=== PATIENT | female | born 1990 | race Caucasian/White ===

== ENCOUNTER 2016-05-26 17:48 | Emergency (ER) | payer OTHER ==
--- NOTE | 2016-05-26 18:07 | Emergency Department Record ---
History of Present Illness - General Chief Complaint: Headache Migraine Stated Complaint: MIGRAINE Time Seen by Provider: 05/26/16 18:06 Source: Patient Mode of Arrival: Ambulatory Limitations: No limitations - History of Present Illness Initial Comments: The patient is here due to a YOUNG today. She noticed the pain when she woke up. The pain is sharp and stabbing and is behind the L eye. It is associated with nausea and mild photophobia but no vomiting. The pain gradually worsened during the day. She has a long hx of migraine YOUNG's exactly like this and has needed to come to the ER in the past. She denies any new symptoms. MD Complaint: Headache Onset/Timin -: Hour(s) Onset Description: Gradual, Awoke with symptoms Location: Left Severity: Moderate Severity scale (1-10): 8 Quality: Aching Improves With: Nothing Worsens With: None Associated Symptoms: Nausea Treatments Prior to Arrival: Migraine medication - Related Data Home Medications Medication Instructions Recorded Confirmed Last Taken Etonogestrel/Ethinyl Estradiol 1 each VG DAILY 11/06/13 05/26/16 05/26/16 [Nuvaring Vaginal Ring] Previous Rx's Medication Instructions Recorded Methylprednisolone [Medrol Dose 4 mg PO DAILY #1 tab.ds.pk 05/26/16 Pack] Allergies Allergy/AdvReac Type Severity Reaction Status Date / Time escitalopram oxalate Allergy Severe HIVES Verified 05/26/16 18:04 [From Lexapro] hydrocodone bitartrate Allergy Intermediate VOMITING Verified 05/26/16 18:04 [From [place]] Carba Mix (found in surgical Allergy Severe HIVES Uncoded 07/25/15 10:45 gloves) Thirulium(found in surgical Allergy Severe HIVES Uncoded 07/25/15 10:45 gloves) Travel Screening - Travel/Exposure Within Last 30 Days Have you traveled within the last 30 days?: No Review of Systems Constitutional: Denies: Chills, Fever Eyes: Denies: Eye discharge ENT: Denies: Congestion Respiratory: Denies: Cough, Dyspnea Past Medical History - SOCIAL HISTORY Smoking Status: Never smoker Alcohol Use: None Drug Use: None - RESPIRATORY Hx Respiratory Disorders: No - CARDIOVASCULAR Hx Cardio Disorders: No - NEURO Hx Neuro Disorders: No Hx Headaches: Yes (Migraine) - GI Hx GI Disorders: No - Hx Genitourinary Disorders: No - ENDOCRINE Hx Endocrine Disorders: No - MUSCULOSKELETAL Hx Musculoskeletal Disorders: No - PSYCH Hx Psych Problems: Yes Hx Anxiety: Yes Hx Depression: Yes Comment:: ADHD - HEMATOLOGY/ONCOLOGY Hx Hematology/Oncology Disorders: No Family Medical History Any Significant Family History?: Yes Hx Cancer: Grandparents Physical Exam - General General Appearance: Alert, Oriented x3, Cooperative, No acute distress - Head Head exam: Atraumatic, Normocephalic, Normal inspection - Eye Eye exam: Normal appearance, PERRL - ENT ENT exam: Normal exam, Mucous membranes moist, Normal external ear exam, Normal orophraynx - Neck Neck exam: Normal inspection, Full ROM. negative: Lymphadenopathy, Meningismus (The neck is very supple.), Tenderness - Respiratory Respiratory exam: Normal lung sounds bilaterally. negative: Respiratory distress - Cardiovascular Cardiovascular Exam: Regular rate, Normal rhythm, Normal heart sounds - GI/Abdominal GI/Abdominal exam: Soft, Normal bowel sounds. negative: Tenderness - Neurological Neurological exam: Alert, Normal gait, Oriented X3, Other (Neg [place]ift and [place].). negative: Abnormal gait, Altered, Motor sensory deficit - Psychiatric Psychiatric exam: Flat affect. negative: Agitated, Anxious, Depressed Course Vital Signs 05/26/16 17:59 Temperature 98.3 F Pulse Rate 91 H Respiratory 18 Rate Blood Pressure 135/87 Pulse Ox 100 - Reevaluation(s) Reevaluation #1: The patient denies any new issues. She is resting comfortably and states she still does have the YOUNG but it is much improved. She feels ready to go. 05/26/16 18:57 05/27/16 07:16 Disposition Disposition: Discharge Clinical Impression: Migraine Qualifiers: Migraine type: unspecified Status migrainosus presence: without status migrainosus Intractability: not intractable Qualified Code(s): G43.909 - Migraine, unspecified, not intractable, without status migrainosus Disposition: Home, Self-Care Condition: (1) Good Instructions: Migraine Headache (ED) Additional Instructions: Continue your regular medicines. Take the Medrol as directed. Please see your PCP if not better in 3 days. Return to the ER if worse. Prescriptions: Methylprednisolone [Medrol Dose Pack] 4 mg PO DAILY #1 tab.ds.pk Forms: Patient Portal Access Time of Disposition: 19:35
[2016-05-26] MEDS: METOCLOPRAMIDE HCL 10 MG/2 ML VIAL IVP ONE (18:39)
[2016-05-26] MEDS: DIPHENHYDRAMINE HCL IV 50 MG/ML VIAL IVP ONE (18:39)
[2016-05-26] MEDS: KETOROLAC 30 MG/ML VIAL IVP ONE ×2 (18:39→19:05)
[2016-05-26] MEDS: METHYLPREDNISOLONE SOD 40MG/VIAL IVP ONE (19:05)
[2016-05-26] MEDS: MORPHINE SULFATE 5 MG/ML PFS IVP ONE (19:44)
== END 2016-05-26 20:09 | disposition home or self-care (01) ==
LOC: ER 17:48
DX: G43.909 Migraine, unspecified, not intractable, without status migrainosus (principal); R11.0 Nausea; H53.149 Visual discomfort, unspecified
CPT/HCPCS: 99284 ×2; 96374; 96375; J1885; J2270; J1200; J2765; J2920

== ENCOUNTER 2016-06-06 10:42 | Emergency (ER) | payer OTHER ==
[2016-06-06] MEDS ORDERED: KETOROLAC 30 MG/ML VIAL IVP ONE (10:56)
[2016-06-06] MEDS ORDERED: 0.9 % SODIUM CHLORIDE 1,000 ML BAG IV ONE (10:56)
[2016-06-06] MEDS ORDERED: METHYLPREDNISOLONE PF 125MG/VIAL IVP ONE (10:56)
[2016-06-06] MEDS ORDERED: DIPHENHYDRAMINE HCL IV 50 MG/ML VIAL IVP ONE (10:56)
[2016-06-06] MEDS ORDERED: METOCLOPRAMIDE HCL 10 MG/2 ML VIAL IVP ONE (10:57)
--- NOTE | 2016-06-06 11:02 | Emergency Department Record ---
History of Present Illness - General Chief Complaint: Headache Migraine Stated Complaint: MIGRAINE Time Seen by Provider: 06/06/16 10:52 Source: Patient, Family Mode of Arrival: Ambulatory Limitations: No limitations - History of Present Illness Initial Comments: 26 yo female presents with a headache. She has a long history of migraines. This headache started this morning. She was unable to take her typical medication due to nausea and vomiting. No recent fevers or trauma. She has had migraines since age 16. She has had prior MRI's and CT scans. No history of other neurologic disease. She saw her PCP in March and requested a neurology referral that is still pending. PCP is Dr Burroughs. Complaint: "Migraine" Onset/Timin -: Hour(s) Onset Description: Awoke with symptoms Severity: Severe Severity scale (1-10): 9 Quality: Aching, Similar to previous headaches Consistency: Constant Improves With: Nothing Worsens With: Light, Noise Context: Other Associated Symptoms: Nausea, Vomiting Other Symptoms: Other Treatments Prior to Arrival: None - Related Data Home Medications Medication Instructions Recorded Confirmed Last Taken Etonogestrel/Ethinyl Estradiol 1 each VG DAILY 11/06/13 06/06/16 05/26/16 [Nuvaring Vaginal Ring] Allergies Allergy/AdvReac Type Severity Reaction Status Date / Time escitalopram oxalate Allergy Severe HIVES Verified 05/26/16 18:04 [From Lexapro] hydrocodone bitartrate Allergy Intermediate VOMITING Verified 05/26/16 18:04 [From [place]] Carba Mix (found in surgical Allergy Severe HIVES Uncoded 07/25/15 10:45 gloves) Thirulium(found in surgical Allergy Severe HIVES Uncoded 07/25/15 10:45 gloves) Travel Screening - Travel/Exposure Within Last 30 Days Have you traveled within the last 30 days?: No Review of Systems Constitutional: Denies: Chills, Fever, Malaise, Night sweats, Weakness Eyes: Reports: Photophobia. Denies: Eye discharge, Eye pain ENT: Denies: Congestion, Ear pain, Epistaxis, Throat pain Respiratory: Denies: Cough, Dyspnea, Hemoptysis, Wheezes Cardiovascular: Denies: Chest pain, Palpitations, Syncope Endocrine: Denies: Fatigue Gastrointestinal: Reports: Abdominal pain, Nausea, Vomiting. Denies: Diarrhea, Hematochezia Genitourinary: Denies: Dysuria, Urgency Musculoskeletal: Denies: Arthralgia, Back pain, Myalgia, Neck pain Skin: Denies: Change in color, Rash Neurological: Reports: Headache. Denies: Abnormal gait, Confusion, Tingling, Tremors, Vertigo Psychiatric: Denies: Anxiety Hematological/Lymphatic: Denies: Blood Clots, Easy bleeding, Easy bruising, Swollen glands Past Medical History - SOCIAL HISTORY Smoking Status: Never smoker Alcohol Use: None Drug Use: None - RESPIRATORY Hx Respiratory Disorders: No - CARDIOVASCULAR Hx Cardio Disorders: No - NEURO Hx Neuro Disorders: No Hx Headaches: Yes (Migraine) - GI Hx GI Disorders: No - Hx Genitourinary Disorders: No - ENDOCRINE Hx Endocrine Disorders: No - MUSCULOSKELETAL Hx Musculoskeletal Disorders: No - PSYCH Hx Psych Problems: Yes Hx Anxiety: Yes Hx Depression: Yes Comment:: ADHD - HEMATOLOGY/ONCOLOGY Hx Hematology/Oncology Disorders: No Family Medical History Any Significant Family History?: No Hx Cancer: Grandparents Physical Exam - General General Appearance: Alert, Oriented x3, Cooperative, No acute distress Limitations: No limitations - Head Head exam: Atraumatic, Normocephalic, Normal inspection - Eye Eye exam: Normal appearance, PERRL, EOMI. negative: Conjunctival injection, Nystagmus, Scleral icterus - ENT ENT exam: Normal exam, Mucous membranes moist, Normal external ear exam, Normal orophraynx, TM's normal bilaterally Ear exam: Normal external inspection. negative: External canal tenderness Nasal Exam: Normal inspection. negative: Discharge, Sinus tenderness Mouth exam: Normal external inspection, Tongue normal Teeth exam: Normal inspection. negative: Dental caries Throat exam: Normal inspection. negative: Tonsillar erythema, Tonsillar exudate - Neck Neck exam: Normal inspection, Full ROM. negative: Lymphadenopathy, Meningismus , Tenderness - Respiratory Respiratory exam: Normal lung sounds bilaterally. negative: Respiratory distress - Cardiovascular Cardiovascular Exam: Regular rate, Normal rhythm, Normal heart sounds - GI/Abdominal GI/Abdominal exam: Soft. negative: Guarding, Tenderness - Rectal Rectal exam: Deferred - exam: Deferred - Extremities Extremities exam: Normal inspection, Full ROM, Normal capillary refill. negative: Tenderness - Back Back exam: Reports: Normal inspection, Full ROM. Denies: CVA tenderness (R), CVA tenderness (L), Muscle spasm, Rash noted, Tenderness - Neurological Neurological exam: Alert, CN II-XII intact, Normal gait, Oriented X3, Reflexes normal. negative: Motor sensory deficit - Psychiatric Psychiatric exam: Normal affect, Normal mood. negative: Agitated, Anxious - Skin Skin exam: Dry, Intact, Normal color, Warm. negative: Diaphoretic, Erythema Course Vital Signs 06/06/16 10:46 Temperature 98.1 F Pulse Rate 95 H Respiratory 18 Rate Blood Pressure 119/67 Pulse Ox 99 - Reevaluation(s) Reevaluation #1: EMR reviewed from prior ED visit. EMR reviewed from last PCP visit in 06/06/16 11:03 Reevaluation #2: The patient is feeling much better Infusion is still ongoing 06/06/16 11:53 Reevaluation #3: No nausea After the morphine the pain is now well controlled. 06/06/16 13:03 Disposition Disposition: Discharge Clinical Impression: Migraine Qualifiers: Migraine type: unspecified Status migrainosus presence: without status migrainosus Intractability: not intractable Qualified Code(s): G43.909 - Migraine, unspecified, not intractable, without status migrainosus Disposition: Home, Self-Care Condition: (1) Good Instructions: Migraine Headache (ED) Additional Instructions: Rest and stay well hydrated Follow up with your doctor in the next week Continue to pursue your neurology follow up Forms: Patient Portal Access Time of Disposition: 13:16
[2016-06-06] MEDS ORDERED: MORPHINE SULFATE 5 MG/ML PFS IVP ONE (12:35)
== END 2016-06-06 13:29 | disposition home or self-care (01) ==
LOC: ER 10:42
DX: G43.909 Migraine, unspecified, not intractable, without status migrainosus (principal); R11.2 Nausea with vomiting, unspecified
CPT/HCPCS: 99284 ×2; 96374; 96375; 96361; J1885; J2270; J1200; J2765; J2930; J7030

== ENCOUNTER 2017-04-03 10:31 | Emergency (ER) | payer OTHER ==
[2017-04-03] MEDS ORDERED: 0.9 % SODIUM CHLORIDE 1,000 ML BAG IV ONE ×2 (11:02→12:20)
[2017-04-03 11:08] LABS: URINE APPEARANCE TURBID; URINE BILIRUBIN NEGATIVE (NEGATIVE); URINE BLOOD MODERATE (NEGATIVE); URINE COLOR YELLOW; URINE GLUCOSE (UA) NEGATIVE (NEGATIVE); URINE KETONE NEGATIVE (NEGATIVE); URINE LEUKOCYTE ESTERASE NEGATIVE (NEGATIVE); URINE NITRITE NEGATIVE (NEGATIVE); URINE PROTEIN NEGATIVE (NEGATIVE); URINE UROBILINOGEN 0.2 E.U./dL (0.20 - 1.00)
[2017-04-03 11:13] LABS: HCG,QUALITATIVE URINE NEGATIVE (NEGATIVE)
[2017-04-03 11:17] LABS: URINE AMORPHOUS SEDIMENT 4+; URINE BACTERIA NONE SEEN; URINE EPITHELIAL CELLS 0 - 2 (FEW); URINE WBC 0 - 2 (0-2/hpf)
[2017-04-03 11:20] LABS: BASO % 0.2 % (0-6); EOS % 0.2 % (0-6); GRAN % 62.9 % (47-80); LYMPH % 27.1 % (16-45); MEAN CORPUSCULAR HGB CONC 33.3 g/dl (32-36); MEAN PLATELET VOLUME 9.8 fl (7.4-10.4); MONO % 9.6 % (0-9); PLATELET COUNT 324 K/uL (130-400); RED CELL DISTRIBUTION WIDTH 12.8 % (11.5-14.5); WHITE BLOOD COUNT W/O DIFF 4.7 K/uL (4.2-12.2)
[2017-04-03] MEDS ORDERED: KETOROLAC 30 MG/ML VIAL IVP ONE (11:27)
[2017-04-03] MEDS ORDERED: ONDANSETRON HCL IV 4 MG/2 ML VIAL IVP ONE (11:27)
[2017-04-03 11:29] LABS: BLOOD UREA NITROGEN 10 mg/dL (6-20); CREATININE 0.5 mg/dL (0.5-0.9); EST GLOMERULAR FILTRATION RATE > 60 mL/min; GLUCOSE,RANDOM 96 mg/dL (74-109)
--- NOTE | 2017-04-03 11:48 | Emergency Department Record ---
History of Present Illness - General Chief Complaint: Abdominal Pain Stated Complaint: ABD PAIN Time Seen by Provider: 04/03/17 11:20 Source: Patient Mode of Arrival: Ambulatory Limitations: No limitations - History of Present Illness Initial Comments: pt has had diarrhea for 2 days along with nausea. she is now developing a headache. 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 she ate pizza before she got sick but other people ate the same Onset/Timin -: Days(s) Location: Epigastric, Suprapubic Severity: Mild Quality: Aching Consistency: Constant Improves With: Nothing Worsens With: Eating Context: Sick contacts Associated Symptoms: Diarrhea, Nausea - Related Data LMP Date: 04/01/17 LMP (females 10-50): Current Allergies Allergy/AdvReac Type Severity Reaction Status Date / Time escitalopram oxalate Allergy Severe HIVES Verified 04/03/17 10:37 [From Lexapro] hydrocodone bitartrate Allergy Intermediate VOMITING Verified 04/03/17 10:37 [From [place]] Carba Mix (found in surgical Allergy Severe HIVES Uncoded 04/03/17 10:37 gloves) Thirulium(found in surgical Allergy Severe HIVES Uncoded 04/03/17 10:37 gloves) Travel Screening - Travel/Exposure Within Last 30 Days Have you traveled within the last 30 days?: No - Travel/Exposure Within Last Year Have you traveled outside the [place] in the last year?: No - Additonal Travel Details Have you been exposed to anyone with a communicable illness?: No - Travel Symptoms Symptom Screening: None Review of Systems Reviewed: No additional complaints except as noted below Constitutional: Reports: As per HPI. Denies: Chills, Fever, Malaise, Night sweats, Weakness, Weight change Eyes: Reports: As per HPI. Denies: Eye discharge, Eye pain, Photophobia, Vision change ENT: Reports: As per HPI. Denies: Congestion, Dental pain, Ear pain, Epistaxis , Hearing loss, Throat pain Respiratory: Reports: As per HPI. Denies: Cough, Dyspnea, Hemoptysis, Stridor, Wheezes Cardiovascular: Reports: As per HPI. Denies: Arrhythmia, Chest pain, Dyspnea on exertion, Edema, Murmurs, Orthopnea, Palpitations, Paroxysmal nocturnal dyspnea, Rheumatic Fever, Syncope Endocrine: Reports: As per HPI. Denies: Fatigue, Heat or cold intolerance, Polydipsia, Polyuria Gastrointestinal: Reports: As per HPI. Denies: Abdominal pain, Constipation, Diarrhea, Hematemesis, Hematochezia, Melena, Nausea, Vomiting Genitourinary: Reports: As per HPI. Denies: Abnormal menses, Discharge, Dyspareunia, Dysuria, Frequency, Hematuria, Incontinence, Retention, Urgency Musculoskeletal: Reports: As per HPI. Denies: Arthralgia, Back pain, Gout, Joint swelling, Myalgia, Neck pain Skin: Reports: As per HPI. Denies: Bruising, Change in color, Change in hair/ nails, Lesions, Pruritus, Rash Neurological: Reports: As per HPI. Denies: Abnormal gait, Confusion, Headache, Numbness, Paresthesias, Seizure, Tingling, Tremors, Vertigo, Weakness Psychiatric: Reports: As per HPI. Denies: Anxiety, Auditory hallucinations, Depression, Homicidal thoughts, Suicidal thoughts, Visual hallucinations Hematological/Lymphatic: Reports: As per HPI. Denies: Anemia, Blood Clots, Easy bleeding, Easy bruising, Swollen glands Past Medical History - SOCIAL HISTORY Smoking Status: Never smoker Alcohol Use: None Drug Use: None - RESPIRATORY Hx Respiratory Disorders: No - CARDIOVASCULAR Hx Cardio Disorders: No - NEURO Hx Neuro Disorders: No Hx Headaches: Yes (Migraine) - GI Hx GI Disorders: No - Hx Genitourinary Disorders: No - ENDOCRINE Hx Endocrine Disorders: No - MUSCULOSKELETAL Hx Musculoskeletal Disorders: No - PSYCH Hx Psych Problems: Yes Hx Anxiety: Yes Hx Depression: Yes Comment:: ADHD - HEMATOLOGY/ONCOLOGY Hx Hematology/Oncology Disorders: No Family Medical History Any Significant Family History?: Yes Hx Cancer: Grandparents Physical Exam - General General Appearance: Alert, Oriented x3, Cooperative, Mild distress - Head Head exam: Normal inspection - Eye Eye exam: Normal appearance, PERRL, EOMI Pupils: Normal accommodation - ENT ENT exam: Normal exam, Mucous membranes moist, Normal external ear exam, Normal orophraynx Ear exam: Normal external inspection. negative: External canal tenderness Nasal Exam: Normal inspection. negative: Discharge, Sinus tenderness Mouth exam: Normal external inspection, Tongue normal Teeth exam: Normal inspection. negative: Dental caries Throat exam: Normal inspection. negative: Tonsillar erythema, Tonsillar exudate - Neck Neck exam: Normal inspection, Full ROM. negative: Tenderness - Respiratory Respiratory exam: Normal lung sounds bilaterally. negative: Respiratory distress - Cardiovascular Cardiovascular Exam: Regular rate, Normal rhythm, Normal heart sounds - GI/Abdominal GI/Abdominal exam: Soft, Normal bowel sounds. negative: Tenderness - Rectal Rectal exam: Deferred - exam: Deferred - Extremities Extremities exam: Normal inspection, Full ROM, Normal capillary refill. negative: Tenderness - Back Back exam: Reports: Normal inspection, Full ROM. Denies: Muscle spasm, Rash noted, Tenderness - Neurological Neurological exam: Alert, CN II-XII intact, Normal gait, Oriented X3 - Psychiatric Psychiatric exam: Normal affect, Normal mood - Skin Skin exam: Dry, Intact, Normal color, Warm Course Vital Signs 04/03/17 10:32 Temperature 98.2 F Pulse Rate 95 H Respiratory 20 Rate Blood Pressure 133/91 Pulse Ox 98 Medical Decision Making - Lab Data Result diagrams: 04/03/17 10:45 04/03/17 10:45 Lab Results 04/03/17 04/03/17 04/03/17 Range/Units 10:45 10:45 11:05 WBC 4.7 (4.2-12.2) K/uL RBC 5.00 (3.80-5.40) M/uL Hgb 15.0 (11.6-16.0) gm/dl Hct 45.0 (35.0-47.0) % MCV 90.0 (81-97) fl MCH 30.0 (27-33) pg MCHC 33.3 (32-36) g/dl RDW 12.8 (11.5-14.5) % Plt Count 324 (130-400) K/uL MPV 9.8 (7.4-10.4) fl Gran % 62.9 (47-80) % Lymphocytes % 27.1 (16-45) % Monocytes % 9.6 H (0-9) % Eosinophils % 0.2 (0-6) % Basophils % 0.2 (0-6) % Sodium 140 (136-145) mmol/L Potassium 3.5 (3.4-4.5) mmol/L Chloride 103 (98-107) mmol/L Carbon Dioxide 24.0 (22-29) mmol/L Anion Gap 13.0 (7-16) BUN 10 (6-20) mg/dL Creatinine 0.5 (0.5-0.9) mg/dL Estimated GFR > 60 mL/min Random Glucose 96 (74-109) mg/dL Calcium 9.3 (8.6-10.0) mg/dL Urine Color Yellow Urine Appearance Turbid H Urine pH 6.0 (5.0-8.0) Ur Specific [place] >= 1.030 (1.002-1.030) Urine Protein Negative (NEGATIVE) Urine Glucose (UA) Negative (NEGATIVE) Urine Ketones Negative (NEGATIVE) Urine Blood Moderate (NEGATIVE) Urine Nitrite Negative (NEGATIVE) Urine Bilirubin Negative (NEGATIVE) Urine Urobilinogen 0.2 (0.20 - 1.00) E.U./dL Ur Leukocyte Esterase Negative (NEGATIVE) Urine RBC 3 - 6 (NONE SEEN) Urine WBC 0 - 2 (0-2/hpf) Ur Epithelial Cells 0 - 2 (FEW) Amorphous Sediment 4+ Urine Bacteria None seen Urine HCG, Qual Negative (NEGATIVE) Disposition Disposition: Discharge Clinical Impression: Dehydration Vomiting Qualifiers: Vomiting type: unspecified Vomiting Intractability: intractable Nausea presence : with nausea Qualified Code(s): R11.2 - Nausea with vomiting, unspecified Diarrhea Qualifiers: Diarrhea type: unspecified type Qualified Code(s): R19.7 - Diarrhea, unspecified Disposition: Home, Self-Care Condition: (1) Good Instructions: Acute Nausea and Vomiting (ED), Acute Diarrhea (ED), Dehydration (ED) Forms: Patient Portal Access Quality - Quality Measures Quality Measures: N/A - Blood Pressure Screening Does Patient Have Any of the Following: No Blood Pressure Classification: Hypertensive Reading Systolic Measurement: 133 Diastolic Measurement: 91 Screening for High Blood Pressure: < Pre-Hypertensive BP, F/U Documented > [ [id number]] Pre-Hypertensive Follow-up Interventions: Follow-up with rescreen every year.
[2017-04-03 14:22] LABS: CRYPTOSPORIDIUM PARVUM ANTIGEN NOT DETECTED (NOT DETECT); GIARDIA LAMBLIA ANTIGEN NOT DETECTED (NOT DETECT); ROTOVIRUS NOT DETECTED (NOT DETECT)
[2017-04-03 16:29] LABS: MOLECULAR C DIFF TOXIN SCREEN NOT DETECTED (NOT DETECT)
== END 2017-04-03 13:16 | disposition home or self-care (01) ==
LOC: ER 10:31
DX: E86.0 Dehydration (principal); R11.2 Nausea with vomiting, unspecified; R19.7 Diarrhea, unspecified; R10.13 Epigastric pain
CPT/HCPCS: 80048; 81001; 81025; 82272; 85025; 87329; 87425; 87493; 89055; 96374; 96375; 99284; J1885; J2405; J7030

== ENCOUNTER 2018-04-03 11:56 | Emergency (ER) | payer OTHER ==
[2018-04-03] MEDS ORDERED: ONDANSETRON HCL IV 4 MG/2 ML VIAL IVP ONE (13:48)
[2018-04-03] MEDS ORDERED: DIPHENHYDRAMINE HCL 50 MG/ML VIAL IVP ONE (13:48)
[2018-04-03] MEDS ORDERED: DEXAMETHASONE SOD PHOSPHATE 10MG/ML VIAL IVP ONE (13:49)
[2018-04-03] MEDS ORDERED: KETOROLAC 30 MG/ML VIAL IVP ONE (13:51)
--- NOTE | 2018-04-03 13:56 | Emergency Department Record ---
History of Present Illness - General Chief Complaint: Headache Migraine Stated Complaint: HEADACHE Time Seen by Provider: 04/03/18 13:42 Mode of Arrival: Ambulatory - History of Present Illness Initial Comments: 11 days of a headache and she has been trying meds [facility] has been recommending via messaging and they told her to come to the ED. Complaint: "Migraine" Onset/Timin -: Days(s) Location: Left, Occipital, Other Severity scale (1-10): 9 Quality: Aching Associated Symptoms: Photophobia, Sensitivity to sound, Vomiting - Related Data Home Medications Medication Instructions Recorded Confirmed Last Taken Nadolol 20 mg PO BID 04/03/18 04/03/18 Unknown Zolmitriptan [Zomig] 5 mg PO DAILY PRN 04/03/18 04/03/18 04/02/18 Allergies Allergy/AdvReac Type Severity Reaction Status Date / Time escitalopram oxalate Allergy Severe HIVES Verified 04/03/17 10:37 [From Lexapro] hydrocodone bitartrate Allergy Intermediate VOMITING Verified 04/03/17 10:37 [From [place]] methylprednisolone sodium Allergy Intermediate anxiety/sick Unverified 06/20/17 12:19 succinate feeling [From Solu-Medrol] methylprednisolone AdvReac HYPERSENSIT Verified 04/03/18 13:45 [From Solu-Medrol] IVITY Carba Mix (found in surgical Allergy Severe HIVES Uncoded 04/03/17 10:37 gloves) Thirulium(found in surgical Allergy Severe HIVES Uncoded 04/03/17 10:37 gloves) Travel Screening - Travel/Exposure Within Last 30 Days Have you traveled within the last 30 days?: No - Travel/Exposure Within Last Year Have you traveled outside the [place] in the last year?: No - Additonal Travel Details Have you been exposed to anyone with a communicable illness?: No - Travel Symptoms Symptom Screening: Vomiting Review of Systems Reviewed: No additional complaints except as noted below Constitutional: Reports: As per HPI. Denies: Chills, Fever, Malaise, Night sweats, Weakness, Weight change Eyes: Reports: As per HPI. Denies: Eye discharge, Eye pain, Photophobia, Vision change ENT: Reports: As per HPI. Denies: Congestion, Dental pain, Ear pain, Epistaxis , Hearing loss, Throat pain Respiratory: Reports: As per HPI. Denies: Cough, Dyspnea, Hemoptysis, Stridor, Wheezes Cardiovascular: Reports: As per HPI. Denies: Arrhythmia, Chest pain, Dyspnea on exertion, Edema, Murmurs, Orthopnea, Palpitations, Paroxysmal nocturnal dyspnea, Rheumatic Fever, Syncope Endocrine: Reports: As per HPI. Denies: Fatigue, Heat or cold intolerance, Polydipsia, Polyuria Gastrointestinal: Reports: As per HPI. Denies: Abdominal pain, Constipation, Diarrhea, Hematemesis, Hematochezia, Melena, Nausea, Vomiting Genitourinary: Reports: As per HPI. Denies: Abnormal menses, Discharge, Dyspareunia, Dysuria, Frequency, Hematuria, Incontinence, Retention, Urgency Musculoskeletal: Reports: As per HPI. Denies: Arthralgia, Back pain, Gout, Joint swelling, Myalgia, Neck pain Skin: Reports: As per HPI. Denies: Bruising, Change in color, Change in hair/ nails, Lesions, Pruritus, Rash Neurological: Reports: As per HPI. Denies: Abnormal gait, Confusion, Headache, Numbness, Paresthesias, Seizure, Tingling, Tremors, Vertigo, Weakness Psychiatric: Reports: As per HPI. Denies: Anxiety, Auditory hallucinations, Depression, Homicidal thoughts, Suicidal thoughts, Visual hallucinations Hematological/Lymphatic: Reports: As per HPI. Denies: Anemia, Blood Clots, Easy bleeding, Easy bruising, Swollen glands Past Medical History - SOCIAL HISTORY Smoking Status: Never smoker Alcohol Use: Rare Drug Use: None - RESPIRATORY Hx Respiratory Disorders: No - CARDIOVASCULAR Hx Cardio Disorders: No - NEURO Hx Neuro Disorders: No Hx Headaches: Yes (Migraine) - GI Hx GI Disorders: No - Hx Genitourinary Disorders: No - ENDOCRINE Hx Endocrine Disorders: No - MUSCULOSKELETAL Hx Musculoskeletal Disorders: No - PSYCH Hx Psych Problems: Yes Hx Anxiety: Yes Hx Depression: Yes Comment:: ADHD - HEMATOLOGY/ONCOLOGY Hx Hematology/Oncology Disorders: No Family Medical History Any Significant Family History?: No Hx Cancer: Grandparents Physical Exam - General General Appearance: Alert, Oriented x3, Cooperative, No acute distress - Head Head exam: Normal inspection - Eye Eye exam: Normal appearance, PERRL Pupils: Normal accommodation - ENT ENT exam: Normal exam, Mucous membranes moist, Normal external ear exam, Normal orophraynx, TM's normal bilaterally Ear exam: Normal external inspection. negative: External canal tenderness Nasal Exam: Normal inspection. negative: Discharge, Sinus tenderness Mouth exam: Normal external inspection, Tongue normal Teeth exam: Normal inspection. negative: Dental caries Throat exam: Normal inspection. negative: Tonsillar erythema, Tonsillar exudate - Neck Neck exam: Normal inspection, Full ROM. negative: Tenderness - Respiratory Respiratory exam: Normal lung sounds bilaterally. negative: Respiratory distress - Cardiovascular Cardiovascular Exam: Regular rate, Normal rhythm, Normal heart sounds - GI/Abdominal GI/Abdominal exam: Soft, Normal bowel sounds. negative: Tenderness - Rectal Rectal exam: Deferred - exam: Deferred - Extremities Extremities exam: Normal inspection, Full ROM, Normal capillary refill. negative: Tenderness - Back Back exam: Reports: Normal inspection, Full ROM. Denies: Muscle spasm, Rash noted, Tenderness - Neurological Neurological exam: Alert, Normal gait, Oriented X3, Reflexes normal - Psychiatric Psychiatric exam: Normal affect, Normal mood - Skin Skin exam: Dry, Intact, Normal color, Warm Course - Reevaluation(s) Reevaluation #1: feeling better 04/03/18 14:27 Reevaluation #2: feeling better 04/03/18 14:31 Disposition Clinical Impression: Migraine Qualifiers: Migraine type: without aura Status migrainosus presence: without status migrainosus Intractability: not intractable Qualified Code(s): G43.009 - Migraine without aura, not intractable, without status migrainosus Disposition: Home, Self-Care Condition: (1) Good Instructions: Migraine Headache (ED) Additional Instructions: follow up with primary or headache Dr in one week continue home medication Forms: Patient Portal Access Time of Disposition: 14:32 Quality - Quality Measures Quality Measures: Headache (All Ages) - Headache: Neuroimaging Quality Measure: Measure #419: Overuse of Neuroimaging ICD10 Codes Entered: Yes Neurological Exam: Patient had a normal neurological exam. [G9535] Headache: Use of Neuroimaging: < CTA, CT, MRA or MRI was NOT ordered > [G9534] - Blood Pressure Screening Does Patient Have Any of the Following: No Blood Pressure Classification: Hypertensive Reading Systolic Measurement: 142 Diastolic Measurement: 91 Screening for High Blood Pressure: < Pre-Hypertensive BP, F/U Documented > [ G8950] Pre-Hypertensive Follow-up Interventions: Referral to alternative/primary care provider.
== END 2018-04-03 14:58 | disposition home or self-care (01) ==
LOC: ER 11:56
DX: G43.009 Migraine without aura, not intractable, without status migrainosus (principal); R11.11 Vomiting without nausea; H53.149 Visual discomfort, unspecified
CPT/HCPCS: 96374; 96375; 99284; J1200; J1885; J2405